=== PATIENT | female | born 1945 | race Caucasian/White ===

== ENCOUNTER 2016-04-27 11:04 | Outpatient (CLI) | payer OTHER ==
--- NOTE | 2016-04-27 11:56 | DIAGNOSTIC IMAGING REPORT ---
PROCEDURE: DEXA BONE DENSITY STUDY CLINICAL INDICATION: OSTEOPOROSIS,OSTEOPENIA COMPARISON: DEXA 02/21/2015 FINDINGS: LUMBAR SPINE: Bone mineral density 0.819 g/cm2, T score -2.1 osteopenia which represents a 1.8% improvement from the previous study LEFT HIP: Bone mineral density 0.707 g/cm2, T score -1.9 osteopenia which represents a 0.1% improvement from the previous study LEFT FEMORAL NECK: Bone mineral density 0.557 g/cm2, T score -2.6 osteoporosis which represents a 1% decrease since the previous study FRACTURE RISK CALCULATION ( when applicable): 10-year fracture risk of a major osteoporotic fracture and of a hip fracture not reported because cause some T-score at or below -2.5 (T score greater or equal to -1.0 to: NORMAL) (T score from -1.1 to -2.4: OSTEOPENIA) (T score ess than or equal to -2.5: OSTEOPOROSIS) IMPRESSION: 1. Femoral neck osteoporosis, osteopenia lumbar spine and hip.
== END 2016-04-27 23:00 | disposition home or self-care (01) ==
LOC: XR SRH 11:04
DX: M81.8 Other osteoporosis without current pathological fracture (principal); M85.88 Other specified disorders of bone density and structure, other site